=== PATIENT | female | born 1960 | race Caucasian/White ===

== ENCOUNTER 2024-08-30 14:21 | Observation (INO) | payer OTHER ==
[2024-08-30] MEDS ORDERED: NALOXONE 0.4 MG/ML 1 ML VIAL IV PRN (14:56)
--- NOTE | 2024-08-30 14:58 | ED ---
General Adult HPI - General Chief complaint: GI Bleed Stated complaint: GI bleed Time Seen by Provider: 08/30/24 14:26 Source: patient, EMS Mode of arrival: EMS Limitations: no limitations - History of Present Illness Initial comments: Patient is a previously well 64-year-old female history CABG 17 years ago, prior GI bleed presenting today as a transfer from [facility] for concerns for lower GI bleed. Not on blood thinners. Flulike symptoms on Wednesday of nausea, vomiting, low-grade fever 100.1. Seen at [facility] today for tarry and bloody stool since Wednesday evening. Patient estimates 16 episodes in the last 24 hours. Endorses upper back and generalized abdominal pain. No history of alcoholism. States she had a scope with Dr. Healy about 3 years ago and was told that "she had a spot" that would need to be taken care of in the future. At [facility] CT abdomen pelvis without contras was performed, hemoglobin is 11.7, lactic 1.1. She was given 40 mg Protonix, IV fluids, Dr. Healy was contacted and recommended transfer here. Currently endorses lightheadedness, denies TORI or chest pain. - Related Data Home Medications Medication Instructions Recorded Confirmed Atorvastatin [Lipitor] 20 mg PO Q48H 08/30/24 08/30/24 Cyanocobalamin [Vitamin B-12 1,000 mcg SQ QMONTHLY 08/30/24 08/30/24 Injection] Multivitamins, Thera [Multivitamin 1 tab PO DAILY 08/30/24 08/30/24 (formulary)] Nitroglycerin Sl Tabs [Nitrostat] 0.4 mg SUBLINGUAL Q5M PRN 08/30/24 08/30/24 lisinopriL [Zestril] 20 mg PO DAILY 08/30/24 08/30/24 Previous Rx's Medication Instructions Recorded Ferrous Sulfate [Iron (65 MG 325 mg PO BID-W/MEALS #30 tab 09/04/24 Elemental)] Pantoprazole [Protonix] 40 mg PO AC-BID #60 tab 09/04/24 cefuroxime axetiL [Ceftin] 500 mg PO BID 5 Days #10 tab 09/04/24 metroNIDAZOLE [Flagyl] 500 mg PO BID 5 Days #10 tab 09/04/24 Allergies Allergy/AdvReac Type Severity Reaction Status Date / Time No Known Allergies Allergy Verified 08/30/24 15:52 Review of Systems ROS Statement: Those systems with pertinent positive or pertinent negative responses have been documented in the HPI. ROS Other: All systems not noted in ROS Statement are negative. Past Medical History Past Medical History: Coronary Artery Disease (CAD), GI Bleed, Hypertension History of Any Multi-Drug Resistant Organisms: None Reported Past Surgical History: Bariatric Surgery, Heart Catheterization With Stent, Orthopedic Surgery Past Psychological History: No Psychological Hx Reported Smoking Status: Never smoker Past Alcohol Use History: Rare Past Drug Use History: None Reported General Exam - General Exam Comments Initial Comments: PE: CONSTITUTIONAL: No apparent distress, well appearing, generalized pallor SKIN: Warm, dry, no jaundice, hives or petechiae EYES: Pupils are equally round, extraocular movements intact without nystagmus, pale conjunctiva, non-icteric sclera HENT: Normocephalic, atraumatic, moist mucus membranes, oropharynx clear without exudates NECK: , Full range of motion, normal appearance PULMONARY: Clear to auscultation without wheezes, rhonchi, or rales, normal excursion, no accessory muscle use and no stridor CARDIOVASCULAR: Regular rate, rhythm, normal S1 and S2. No appreciated murmurs, rubs or gallops. Strong radial pulses with intact distal perfusion. No lower extremity edema, 2+ pulses in all 4 extremities GASTROINTESTINAL: Soft, active bowel sounds throughout, generalized tenderness to palpation with guarding l non-distended, no palpable masses, no rebound No hepatosplenomegaly GENITOURINARY: MUSCULOSKELETAL: Extremities have no gross deformity, no edema, redness, or swelling. No calf swelling NEUROLOGIC:_a/o x 3, GCS 15, normal mentation and speech. Moves all extremities x 4 without motor or sensory deficit PSYCHIATRIC:_normal mood and affect, thought process is clear and linear Limitations: no limitations Course Vital Signs 08/30/24 08/30/24 08/30/24 14:23 19:20 23:37 Temperature 98.5 F Pulse Rate 71 86 70 Respiratory 18 18 18 Rate Blood Pressure 127/75 137/80 105/51 O2 Sat by Pulse 100 97 96 Oximetry 08/31/24 08/31/24 08/31/24 01:48 05:10 15:00 Temperature 98.0 F 98.5 F 98.2 F Pulse Rate 76 68 72 Respiratory 16 15 16 Rate Blood Pressure 138/84 118/67 124/71 O2 Sat by Pulse 98 100 99 Oximetry EKG Findings - EKG Comments: EKG Findings:: Sinus rhythm rate 68 bpm DC interval 135 ms QT/QTc 399/3 4 performed 70 ms normal axis no ST elevations or depressions, no arrhythmia Medical Decision Making - Medical Decision Making Was pt. sent in by a medical professional or institution (, PA, BUILDING CLEANING SUPERVISOR, urgent care, hospital, or detention...) When possible be specific Patient was transferred from [facility] Did you speak to anyone other than the patient for history (EMS, parent, family, police, friend...)? What history was obtained from this source @ -No Did you review nursing and triage notes (agree or disagree)? Why? @ -I reviewed nursing and triage notes Were old charts reviewed (outside hosp., previous admission, EMS record, old EKG, old radiological studies, urgent care reports/EKG's, detention records)? Report findings @ -Medical records reviewed-reviewed records sent with patient from transferring facility, CT abdomen pelvis without contrast performed, labs were significant for hemoglobin of 11.7 and a lactic of 1.1 Differential Diagnosis (chest pain, altered mental status, abdominal pain women, abdominal pain men, vaginal bleeding, weakness, fever, dyspnea, syncope, headache, dizziness, GI bleed, back pain, seizure, CVA, palpatations, mental health, musculoskeletal)? @ -Differential GI Bleed: Esophageal varices, aortoenteric fistula, Helen-Sousa, gastritis, peptic ulcer disease, diverticulosis, inflammatory bowel disease, hemorrhoids, fissure, colitis, malignancy, Meckel's diverticulum, this is not meant to be an all-inclu sive list. EKG interpreted by me (3pts min.). @ -As above X-rays interpreted by me (1pt min.). @ -None done CT interpreted by me (1pt min.). @ -None done U/S interpreted by me (1pt. min.). @ -None done What testing was considered but not performed or refused? (CT, X-rays, U/S, labs)? Why? @ -None What meds were considered but not given or refused? Why? @ -None Did you discuss the management of the patient with other professionals (professionals i.e. DrSarah, PA, BUILDING CLEANING SUPERVISOR, lab, RT, psych nurse, family welfare social work professor, digital content specialist, teacher, deportation officer, manager case management)? Give summary @ -No Was smoking cessation discussed for >3mins.? @ -No Was critical care preformed (if so, how long)? @ -No Were there social determinants of health that impacted care today? How? (Homelessness, low income, unemployed, alcoholism, drug addiction, transportation, low edu. Level, literacy, decrease access to med. care, fci, rehab)? @ -No Was there de-escalation of care discussed even if they declined (Discuss DNR or withdrawal of care, Hospice)? @ -No What co-morbidities impacted this encounter? (DM, HTN, Smoking, COPD, CAD, C ancer, CVA, ARF, Chemo, Hep., AIDS, mental health diagnosis, sleep apnea, morbid obesity)? @CKD, hypertension Was patient admitted / discharged? Hospital course, mention meds given and route, prescriptions, significant lab abnormalities, going to OR and other pertinent info. @ -Admission patient is a pleasant 64-year-old female history of prior CABG, hypertension presenting today for concerns for lower GI bleed. Vital signs stable on arrival. Patient seen and assessed on arrival, she is resting comfortably no acute distress with pale conjunctiva and generalized pallor, 2+ pulses in all 4 extremities. Discussed with patient plan for admission, will repeat basic labs to ensure no sudden decrease in hemoglobin, page Dr. Huston. Dr. Healy was contacted regarding patient's arrival to the ER. Case was discussed with Dr. Wallis who kindly accepted patient for admission. Undiagnosed new problem with uncertain prognosis? @ -No Drug Therapy requiring intensive monitoring for toxicity (Heparin, Nitro, Insulin, Cardizem)? @ -No Were any procedures done? @ -No Diagnosis/symptom? @ -Lower GI bleed Acute, or Chronic, or Acute on Chronic? @Acute Uncomplicated (without systemic symptoms) or Complicated (systemic symptoms)? Complicated Side effects of treatment? @ -No Exacerbation, Progression, or Severe Exacerbation? @ -No Poses a threat to life or bodily function? How? (Chest pain, USA, PA, pneumonia, PE, COPD, DKA, ARF, appy, cholecystitis, CVA, Diverticulitis, Homicidal, Suicidal, threat to staff... and all critical care pts) Yes, if left untreated could potentially deteriorate into massive GI bleed and hemorrhagic shock - Lab Data Result diagrams: 09/03/24 06:16 09/03/24 06:16 Disposition Clinical Impression: Lower GI bleed Disposition: ADMITTED IP TO THIS HOSP Condition: Fair
[2024-08-30] MEDS: SODIUM CHLORIDE 0.9% 1,000 ML IV STA (15:43)
[2024-08-30] MEDS: ONDANSETRON 4 MG/2 ML VIAL IVP STA ×2 (15:45→19:15)
[2024-08-30] MEDS: MORPHINE SULFATE 4 MG/ML SYRINGE IVP STA (15:46)
[2024-08-30 15:49] LABS: Basophils % (A) 0 %; Eosinophils # (A) 0.2 k/uL (0-0.7); Eosinophils % (A) 3 %; HCT 37.4 % (34.0-46.0); HGB 11.4 gm/dL (11.4-16.0); Lymphocytes # (A) 1.4 k/uL (1.0-4.8); Lymphocytes % (A) 22 %; MCH 27.9 pg (25.0-35.0); MCHC 30.5 g/dL (31.0-37.0); MCV 91.7 fL (80.0-100.0); Mean Platelet Volume 8.4; Monocytes # (A) 0.3 k/uL (0-1.0); Monocytes % (A) 5 %; Neutrophils # (A) 4.3 k/uL (1.3-7.7); Neutrophils % (A) 67 %; Platelet Count 257 k/uL (150-450); RBC 4.08 m/uL (3.80-5.40); RDW 14.4 % (11.5-15.5); WBC 6.3 k/uL (3.8-10.6)
[2024-08-30 16:01] LABS: ALT 19 U/L (4-34); AST 23 U/L (14-36); African American GFR (CKD) >90 (>60 ml/min/1.73 sqM); Albumin 3.8 g/dL (3.5-5.0); Alkaline Phosphatase 75 U/L (38-126); Anion Gap 3 mmol/L; Blood Urea Nitrogen 10 mg/dL (7-17); Calcium 9.2 mg/dL (8.4-10.2); Carbon Dioxide 31 mmol/L (22-30); Chloride 106 mmol/L (98-107); Glucose 91 mg/dL (74-99); Lipase 59 U/L (23-300); Non-African American GFR(CKD) >90 (>60 ml/min/1.73 sqM); Potassium 4.3 mmol/L (3.5-5.1); Sodium 140 mmol/L (137-145); Total Bilirubin 0.5 mg/dL (0.2-1.3); Total Protein 6.2 g/dL (6.3-8.2)
[2024-08-30 16:05] LABS: Prothrombin Time 10.9 sec (10.0-12.5)
[2024-08-30 16:11] LABS: Partial Thromboplastin Time 21.1 sec (22.0-30.0)
--- NOTE | 2024-08-30 18:26 | P.HPIM ---
History of Present Illness This is a pleasant 64 years old female who was transferred from [facility]. Patient presents because of possible lower GI bleed. Patient she states over the last 2 months she has been having pain in both upper and lower abdomen about 6-7/10 in severity radiating to the back [place] like something pressing and is relieved by Zofran which helped her nausea as well. She reports she is having diarrhea with blood more than 16 in the last 24 hours. Also she has pain in her right hip surgery area about 1 year ago had surgery on her right knee had surgery 10 years ago. Also patient reports running fever about 100.1 200.2 few days ago. She has history of bariatric bypass procedure with Dr. Huston. At home she uses only Tylenol for pain no NSAIDs, she is not taking any blood thinner only lisinopril 20 mg twice a day, Lipitor every other days and nitroglycerin pills. She does not have a drug allergy. She denies smoking alcohol or illicit drugs Hemodynamically stable and currently afebrile Hemoglobin 11.4, rest of CBC, BMP, LFT, INR and troponin were all unremarkable EKG showing sinus rhythm at 68 She is given some IV fluid in the emergency room. Placed on IV Protonix and admitted with GI consult At [facility] CT of the abdomen pelvis without contrast showing no acute process identified that would explain the patient Symptoms, gastric bypass surgical changes and other nonspecific findings per report Review of Systems Review of systems CONSTITUTIONAL: No fever, no malaise, no fatigue. HEENT: No recent visual problems or hearing problems. Denied any sore throat. CARDIOVASCULAR: No orthopnea, PND, no palpitations, no syncope. PULMONARY: No shortness of breath, no cough, no hemoptysis. GASTROINTESTINAL: No diarrhea, no nausea, no vomiting, no abdominal pain. Norm oactive bowel sounds. NEUROLOGICAL: No headaches, no weakness, no numbness. HEMATOLOGICAL: Denies any bleeding or petechiae. GENITOURINARY: Denies any burning micturition, frequency, or urgency. MUSCULOSKELETAL/RHEUMATOLOGICAL: Denies any joint pain, swelling, or any muscle pain. ENDOCRINE: Denies any polyuria or polydipsia. Past Medical History Past Medical History: Coronary Artery Disease (CAD), GI Bleed, Hypertension History of Any Multi-Drug Resistant Organisms: None Reported Past Surgical History: Bariatric Surgery, Heart Catheterization With Stent, Orthopedic Surgery Past Psychological History: No Psychological Hx Reported Smoking Status: Never smoker Past Alcohol Use History: Rare Past Drug Use History: None Reported Medications and Allergies Home Medications Medication Instructions Recorded Confirmed Type Atorvastatin [Lipitor] 20 mg PO Q48H 08/30/24 08/30/24 History Cyanocobalamin [Vitamin B-12 1,000 mcg SQ QMONTHLY 08/30/24 08/30/24 History Injection] Multivitamins, Thera [Multivitamin 1 tab PO DAILY 08/30/24 08/30/24 History (formulary)] Nitroglycerin Sl Tabs [Nitrostat] 0.4 mg SUBLINGUAL Q5M PRN 08/30/24 08/30/24 History lisinopriL [Zestril] 20 mg PO DAILY 08/30/24 08/30/24 History Allergies Allergy/AdvReac Type Severity Reaction Status Date / Time No Known Allergies Allergy Verified 08/30/24 15:52 Physical Exam Vitals: Vital Signs Temp Pulse Resp BP Pulse Ox 08/30/24 14:23 98.5 F 71 18 127/75 100 Intake and Output 08/30/24 08/30/24 08/30/24 06:59 14:59 22:59 Other: Weight 84.822 kg GENERAL: The patient is alert and oriented x3, not in any acute distress. Well developed, well nourished. HEENT: Pupils are round and equally reacting to light. EOMI. No scleral icterus. No conjunctival pallor. Normocephalic, atraumatic. No pharyngeal erythema. No thyromegaly. CARDIOVASCULAR: S1 and S2 present. No murmurs, rubs, or gallops. PULMONARY: Chest is clear to auscultation, no wheezing , no crackles. ABDOMEN: Soft, nontender, nondistended, normoactive bowel sounds. No palpable organomegaly. MUSCULOSKELETAL: No joint swelling or deformity. EXTREMITIES: No cyanosis, clubbing, or pedal edema. NEUROLOGICAL: Gross neurological examination did not reveal any focal deficits. SKIN: No rashes. no petechiae. Results CBC & Chem 7: 08/30/24 15:35 08/30/24 15:35 Labs: Abnormal Lab Results - Last 24 Hours (Table) 08/30/24 08/30/24 08/30/24 Range/Units 15:35 15:35 15:35 MCHC 30.5 L (31.0-37.0) g/dL APTT 21.1 L (22.0-30.0) sec Carbon Dioxide 31 H (22-30) mmol/L Creatinine 0.51 L (0.52-1.04) mg/dL Total Protein 6.2 L (6.3-8.2) g/dL Assessment and Plan Assessment: Acute lower GI bleed. Associated with some abdominal cramps and diarrhea suspicious for gastroenteritis. Currently hemoglobin is stable and patient with no fever or leukocytosis Hypertension Hyperlipidemia Plan: Monitor hemoglobin Continue with IV Protonix Avoid NSAIDs and blood thinners if possible Check virus spent GI team consult Further recommendation based on the clinical course GI prophylaxis: Protonix DVT prophylaxis mechanical, no anticoagulation because of the GI bleed Prognosis is guarded
[2024-08-30] MEDS: HYDROmorphone 0.5 MG/0.5 ML SYRINGE IVP PRN (19:15)
[2024-08-30 20:07] LABS: Influenza A Not Detected (Not Detectd); Influenza B Not Detected (Not Detectd); RSV Not Detected (Not Detectd)
[2024-08-31] MEDS: ONDANSETRON 4 MG/2 ML VIAL IVP PRN (05:11)
[2024-08-31] MEDS: lisinopriL 20 MG TAB PO SCH (08:34)
[2024-08-31] MEDS: PANTOPRAZOLE 40 MG/10 ML VIAL IV SCH ×2 (08:34→20:31)
--- NOTE | 2024-08-31 10:30 | P.CONS ---
History of Present Illness - Reason for Consult Consult date: 08/31/24 GI bleed Requesting physician: Elidia Elizabeth - Chief Complaint Nausea and vomiting, coffee-ground emesis and melena - History of Present Illness This is a pleasant 64-year-old female with a past medical history including previous upper GI bleed, gastric bypass with Melina-en-Y 17 years ago, coronary artery disease with previous stent and hypertension. Patient had presented to [facility] with complaints of nausea vomiting and diarrhea since this past Wednesday. She has had multiple episodes of emesis as well as diarrhea which she reported emesis as coffee-ground in color and loose stools that have been black and tarry with some noted blood. She states she does have a history of a previous upper GI bleed she believes possibly an ulcer and had undergone EGD about [address] Healy with intervention. Patient states since she has been transferred here to our hospital she has had no further vomiting, still has some nausea, no further bowel movements. She denies being on any anticoagulation, no NSAID use. Admitting labs WBC 6.3 hemoglobin 11.4 hematocrit 37 platelet count 257,000 INR 1.0 sodium 140 potassium 4.3 BUN 10 creatinine 0.5 total bilirubin 0.5 AST 23 ALT 19 alkaline phosphatase 75 lipase 59 influenza RSV and COVID serologies negative. Patient denies any other sick contacts. Review of Systems REVIEW OF SYSTEMS: CARDIOPULMONARY: No chest pain or shortness of breath. Gastrointestinal: Abdominal pain. Nausea and vomiting since Wednesday, vomiting has resolved. Coffee-ground emesis. Black tarry stool, melena. History of Melina-en-Y and previous GI bleed GENITOURINARY: No dysuria or hematuria. MUSCULOSKELETAL: Reports normal range of motion. SKIN: No rashes. No jaundice. ENDOCRINE: No chills, fevers. No excessive weight gain or loss. No polydipsia or polyuria. PSYCHIATRIC: Unremarkable. NEUROLOGY: No change in mental status. Denies dizziness, headache. ENT: Vision unremarkable. CONSTITUTIONAL: No recent weight loss. No fever, chills, night sweats. Past Medical History Past Medical History: Coronary Artery Disease (CAD), GI Bleed, Hypertension History of Any Multi-Drug Resistant Organisms: None Reported Past Surgical History: Bariatric Surgery, Heart Catheterization With Stent, Orthopedic Surgery Past Psychological History: No Psychological Hx Reported Smoking Status: Never smoker Past Alcohol Use History: Rare Past Drug Use History: None Reported Medications and Allergies Home Medications Medication Instructions Recorded Confirmed Type Atorvastatin [Lipitor] 20 mg PO Q48H 08/30/24 08/30/24 History Cyanocobalamin [Vitamin B-12 1,000 mcg SQ QMONTHLY 08/30/24 08/30/24 History Injection] Multivitamins, Thera [Multivitamin 1 tab PO DAILY 08/30/24 08/30/24 History (formulary)] Nitroglycerin Sl Tabs [Nitrostat] 0.4 mg SUBLINGUAL Q5M PRN 08/30/24 08/30/24 History lisinopriL [Zestril] 20 mg PO DAILY 08/30/24 08/30/24 History Allergies Allergy/AdvReac Type Severity Reaction Status Date / Time No Known Allergies Allergy Verified 08/30/24 15:52 Physical Exam Vitals: Vital Signs Temp Pulse Resp BP Pulse Ox 08/31/24 05:10 98.5 F 68 15 118/67 100 08/31/24 01:48 98.0 F 76 16 138/84 98 08/30/24 23:37 70 18 105/51 96 08/30/24 19:20 86 18 137/80 97 08/30/24 14:23 98.5 F 71 18 127/75 100 General appearance: The patient is alert, oriented, appears in no acute distress. HET: Head is normocephalic and atraumatic. Conjunctiva pink. Sclera anicteric. Neck: Supple without lymphadenopathy. Trachea midline. Heart: Regular. Lungs: Equal expansion, normal respiratory effort. Abdomen: Soft, nontender, nondistended. Skin: No rashes. No jaundice. Extremities: Normal skin color and turgor. No pedal edema. Neurological: No focal deficits. Alert and oriented x3. Results CBC & Chem 7: 08/30/24 15:35 08/30/24 15:35 Labs: Abnormal Lab Results - Last 24 Hours (Table) 08/30/24 08/30/24 08/30/24 Range/Units 15:35 15:35 15:35 MCHC 30.5 L (31.0-37.0) g/dL APTT 21.1 L (22.0-30.0) sec Carbon Dioxide 31 H (22-30) mmol/L Creatinine 0.51 L (0.52-1.04) mg/dL Total Protein 6.2 L (6.3-8.2) g/dL Assessment and Plan (1) GI bleed Narrative/Plan: 64-year-old female presenting from outside hospital for nausea vomiting and diarrhea since Wednesday associated with coffee-ground emesis and black tarry stools and reported melena. This send patient with a previous history of upper GI bleed and underwent upper endoscopy about 3 years ago she states she believes possibly an ulcer was found and treated. She is not on any anticoagulation or NSAIDs she has not been taking any proton pump inhibitors. She had onset of abdominal pain and then she would have loose stools and diarrhea. Hemoglobin is stable at 11.4. Need to consider possible etiology peptic ulcer disease, AVM, gastritis, esophagitis or other possible etiologies. Last colonoscopy about 5 years ago. Will proceed with upper endoscopy. Current Visit: Yes Status: Acute Code(s): K92.2 - GASTROINTESTINAL HEMORRHAGE, UNSPECIFIED SNOMED Code(s): 56959514 (2) Nausea and vomiting Current Visit: Yes Status: Acute Code(s): R11.2 - NAUSEA WITH VOMITING, UNSPECIFIED SNOMED Code(s): 78099986 (3) Melena Current Visit: Yes Status: Acute Code(s): K92.1 - MELENA SNOMED Code(s): 1986282 (4) Coffee ground emesis Current Visit: Yes Status: Acute Code(s): K92.0 - HEMATEMESIS SNOMED Code(s): 84253227 Plan: 1. Continue symptomatic and supportive care 2. Keep n.p.o. 3. Antiemetics as needed 4. Protonix 40 mg twice daily 5. Avoid NSAIDs 6. Daily CBC, transfuse for hemoglobin less than 7 7. Plan for upper endoscopy today with further recommendations forthcoming Thank you for this consultation, we will continue to follow. Dr. Chance Healy I agree with the dictator's note, documented as a scribe by Hannah Bucahnan.
[2024-08-31] MEDS: HYDROmorphone 1 MG/ML 1 ML SYRINGE IVP PRN (11:05)
[2024-08-31] MEDS: DEXTROSE 5%-0.9% NACL 1,000 ML IV SCH (11:06)
--- NOTE | 2024-08-31 11:08 | P.PN ---
Subjective This is a pleasant 64 years old female who was transferred from [facility]. Patient presents because of possible lower GI bleed. Patient she states over the last 2 months she has been having pain in both upper and lower abdomen about 6-7/10 in severity radiating to the back [place] like something pressing and is relieved by Zofran which helped her nausea as well. She reports she is having diarrhea with blood more than 16 in the last 24 hours. Also she has pain in her right hip surgery area about 1 year ago had surgery on her right knee had surgery 10 years ago. Also patient reports running fever about 100.1 200.2 few days ago. She has history of bariatric bypass procedure with Dr. Huston. At home she uses only Tylenol for pain no NSAIDs, she is not taking any blood thinner only lisinopril 20 mg twice a day, Lipitor every other days and nitroglycerin pills. She does not have a drug allergy. She denies smoking alcohol or illicit drugs Hemodynamically stable and currently afebrile Hemoglobin 11.4, rest of CBC, BMP, LFT, INR and troponin were all unremarkable EKG showing sinus rhythm at 68 She is given some IV fluid in the emergency room. Placed on IV Protonix and admitted with GI consult At [facility] CT of the abdomen pelvis without contrast showing no acute process identified that would explain the patient Symptoms, gastric bypass surgical changes and other nonspecific findings per report 08/31 Patient still complaining from right upper quadrant abdominal pain and tenderness She still has nausea uncontrolled completely by Zofran 6 mg every 6 hours, therefore we added Reglan 5 mg as needed as well. She is started on IV fluid D5 normal saline at 75 mL/h. Protonix increased to 40 mg twice daily She is hemodynamically stable. Monitor hemoglobin and electrolytes tomorrow. Plan for the patient to go to EGD today with GI team Review of systems CONSTITUTIONAL: No fever, no malaise, no fatigue. HEENT: No recent visual problems or hearing problems. Denied any sore throat. CARDIOVASCULAR: No orthopnea, PND, no palpitations, no syncope. PULMONARY: No shortness of breath, no cough, no hemoptysis. HEMATOLOGICAL: Denies any bleeding or petechiae. GENITOURINARY: Denies any burning micturition, frequency, or urgency. MUSCULOSKELETAL/RHEUMATOLOGICAL: Denies any joint pain, swelling, or any muscle pain. ENDOCRINE: Denies any polyuria or polydipsia. Active Medications Generic Name Dose Route Start Last Admin Trade Name Freq PRN Reason Stop Dose Admin Hydromorphone HCl 0.5 mg 08/30/24 14:56 08/31/24 05:14 Hydromorphone 0.5 Mg/0.5 Ml Syringe IVP 0.5 mg Q3HR PRN Administration Moderate Pain (Scale 4 to 6) Hydromorphone HCl 1 mg 08/30/24 14:56 08/31/24 11:05 Hydromorphone 1 Mg/Ml 1 Ml Syringe IVP 1 mg Q3HR PRN Administration Severe Pain (Scale 7 to 10) Dextrose/Sodium Chloride 1,000 mls @ 75 mls/hr 08/31/24 11:00 08/31/24 11:06 Dextrose 5%-Ns Iv Soln IV 75 mls/hr .[id number] CRAIG Administration Lisinopril 20 mg 08/31/24 09:00 08/31/24 08:34 Lisinopril 20 Mg Tab PO 20 mg DAILY CRAIG Administration Metoclopramide HCl 5 mg 08/31/24 11:04 Metoclopramide 5 Mg/Ml 2 Ml Vial IVP Q6HR PRN Nausea And Vomiting Naloxone HCl 0.2 mg 08/30/24 14:56 Naloxone 0.4 Mg/Ml 1 Ml Vial IV Q2M PRN Opioid Reversal Ondansetron HCl 4 mg 08/30/24 19:09 08/31/24 10:59 Ondansetron 4 Mg/2 Ml Vial IVP 4 mg Q6HR PRN Administration Nausea And Vomiting Pantoprazole Sodium 40 mg 08/31/24 21:00 Pantoprazole 40 Mg/10 Ml Vial IV BID [facility] Objective - Vital Signs Vital signs: Vital Signs Temp 98.5 F 08/31/24 05:10 Pulse 68 08/31/24 05:10 Resp 15 08/31/24 05:10 BP 118/67 08/31/24 05:10 Pulse Ox 100 08/31/24 05:10 FiO2 Intake & Output 08/30/24 08/31/24 08/31/24 18:59 06:59 18:59 Weight 84.822 kg - Exam -GENERAL: The patient is alert and oriented x3, not in an mild distress due to pain. Well developed, well nourished. HEENT: Pupils are round and equally reacting to light. EOMI. No scleral icterus. No conjunctival pallor. Normocephalic, atraumatic. No pharyngeal erythema. No thyromegaly. CARDIOVASCULAR: S1 and S2 present. No murmurs, rubs, or gallops. PULMONARY: Chest is clear to auscultation, no wheezing , no crackles. -ABDOMEN: Soft, nontender left upper quadrant tenderness with no rebound tenderness or guarding, nondistended, normoactive bowel sounds. No palpable organomegaly. MUSCULOSKELETAL: No joint swelling or deformity. EXTREMITIES: No cyanosis, clubbing, or pedal edema. NEUROLOGICAL: Gross neurological examination did not reveal any focal deficits. SKIN: No rashes. no petechiae. - Labs CBC & Chem 7: 08/30/24 15:35 08/30/24 15:35 Labs: Abnormal Lab Results - Last 24 Hours (Table) 08/30/24 08/30/24 08/30/24 Range/Units 15:35 15:35 15:35 MCHC 30.5 L (31.0-37.0) g/dL APTT 21.1 L (22.0-30.0) sec Carbon Dioxide 31 H (22-30) mmol/L Creatinine 0.51 L (0.52-1.04) mg/dL Total Protein 6.2 L (6.3-8.2) g/dL Assessment and Plan Assessment: Acute lower GI bleed. Associated with some abdominal cramps and diarrhea suspicious for gastroenteritis. Currently hemoglobin is stable and patient with no fever or leukocytosis Dehydration secondary to above Hypertension Hyperlipidemia Plan: Monitor hemoglobin Continue with IV Protonix Avoid NSAIDs and blood thinners if possible Check virus span was checked was negative GI team consult with plan for EGD on 08/31 Further recommendation based on the clinical course GI prophylaxis: Protonix DVT prophylaxis mechanical, no anticoagulation because of the GI bleed Prognosis is guarded
[2024-08-31 11:11] LABS: % Iron Saturation 7.9 (12.00-45.00); Ferritin 11.6 ng/mL (10.0-291.0)
[2024-08-31] MEDS: METOCLOPRAMIDE 5 MG/ML 2 ML VIAL IVP PRN (15:51)
[2024-08-31] MEDS ORDERED: PROPOFOL 10 MG/ML 20 ML VIAL IV ONE (16:40)
[2024-08-31] MEDS ORDERED: LIDOCAINE 1% INJ 10MG/ML (20 ML MDV) ONE (16:40)
[2024-08-31] MEDS: SODIUM CHLORIDE 0.9% 500 ML 500 ML IV ONE ×2 (16:42→17:01)
--- NOTE | 2024-08-31 16:55 | P.PCN ---
Procedure(s) Performed: BRIEF HISTORY: Patient is a 64-year-old, pleasant, white female transferred from [facility] with coffee-ground emesis and multiple episodes of black tarry stools for the last 3 days duration. Last hemoglobin was 11.5 g/dL. She had similar episode in 2019 and was noted to have an anastomotic ulcer at the site of previous Melina-en-Y gastric bypass surgery. She was treated with Prilosec for several months and she did well. She denies any NSAID use. PROCEDURE PERFORMED: Esophagogastroduodenoscopy. PREOPERATIVE DIAGNOSIS: Acute upper GI bleed. IV sedation per anesthesia. PROCEDURE: After informed consent was obtained, the patient was brought into the endoscopy unit. IV sedation was administered by Anesthesia under continuous monitoring. Initially the Olympus GIF-140 video endoscope was inserted into the mouth. Esophagus intubated without any difficulty. It was gradually advanced into the stomach. The gastric pouch had scattered erosions.. There was evidence of Melina-en-Y gastric bypass surgery noted. 3 cm clean-based anastomotic ulcer identified with no active bleeding. Biopsies were done from this area. The scope was advanced into the afferent and efferent loop appeared normal. Scope at this time was brought into the gastric pouch. The scope was then withdrawn into the esophagus. The GE junction was located at 39 cm from the incisors. The esophagus appeared normal. There were no erosions or ulcerations seen and the patient tolerated the procedure well. IMPRESSION: 1. 3 cm clean-based gastric anastomotic ulcer at the Melina-en-Y anastomosis with no active bleeding. 2. Scattered erosions in the gastric pouch status post biopsy. RECOMMENDATIONS: The findings of this examination were discussed with the patient. Continue with Protonix 40 mg twice daily. Starting for liquid diet and advance as tolerated. Monitor CBC daily. Avoid NSAIDs..
[2024-08-31 23:35] LABS: Basophils % (A) 0 %; Eosinophils # (A) 0.2 k/uL (0-0.7); Eosinophils % (A) 3 %; HCT 31.4 % (34.0-46.0); Hypochromasia Moderate; Lymphocytes # (A) 1.5 k/uL (1.0-4.8); Lymphocytes % (A) 27 %; MCH 29.9 pg (25.0-35.0); MCHC 31.7 g/dL (31.0-37.0); MCV 94.3 fL (80.0-100.0); Mean Platelet Volume 7.9; Monocytes # (A) 0.3 k/uL (0-1.0); Monocytes % (A) 6 %; Neutrophils # (A) 3.2 k/uL (1.3-7.7); Neutrophils % (A) 59 %; Platelet Count 242 k/uL (150-450); RBC 3.33 m/uL (3.80-5.40); RDW 13.9 % (11.5-15.5); WBC 5.3 k/uL (3.8-10.6)
[2024-08-31] MEDS: PIPERACILLIN-TAZOBACTAM 3.375 GM in SODIUM CHLORIDE 0.9% 100 ML IVPB SCH (23:56)
--- NOTE | 2024-09-01 00:39 | XR ---
EXAM: XR Chest, 2 Views CLINICAL HISTORY: ITS.REASON XR Reason: fever TECHNIQUE: Frontal and lateral views of the chest. COMPARISON: No relevant prior studies available. FINDINGS: Lungs: Unremarkable. No consolidation. Pleural space: Unremarkable. No pneumothorax. Heart: Unremarkable. No cardiomegaly. Mediastinum: Unremarkable. Bones/joints: Unremarkable. IMPRESSION: No consolidation.
[2024-09-01 03:23] LABS: Appearance,Urine Clear (Clear); Bacteria,Urine Rare /hpf; Bilirubin,Urine Negative (Negative); Blood,Urine Trace (Negative); Color,Urine Light Yellow; Glucose,Urine (UA) Negative (Negative); Hyaline Casts,Urine 1 /lpf (0-2); Ketones,Urine Negative (Negative); Leukocyte Esterase,Urine Small (Negative); Mucus,Urine Rare /hpf; Nitrite,Urine Negative (Negative); Protein,Urine Negative (Negative); RBC,Urine 1 /hpf (0-5); Renal Epithelial Cells,Urine 1 /hpf (0); Specific Gravity,Urine 1.011 (1.001-1.035); Squamous Epithelial Cell,Urine <1 /hpf (0-4); Urobilinogen,Urine <2.0 mg/dL (<2.0); WBC,Urine 11 /hpf (0-5)
[2024-09-01 08:39] LABS: Basophils # (A) 0.02 X 10*3/uL (0.00-0.10); Basophils % (A) 0.4 %; Eosinophils # (A) 0.17 X 10*3/uL (0.04-0.35); Eosinophils % (A) 3.4 %; HCT 30.9 % (37.2-46.3); HGB 9.5 g/dL (12.0-15.0); Lymphocytes % (A) 26.2 %; MCH 29.1 pg (27.0-32.0); MCHC 30.7 g/dL (32.0-37.0); MCV 94.5 FL (80.0-97.0); Monocytes # (A) 0.52 X 10*3/uL (0.20-1.00); Monocytes % (A) 10.5 %; NRBC Per 100 WBC 0 X 10*3/uL (0.00-0.01); Neutrophils # (A) 2.94 X 10*3/uL (1.80-7.70); Neutrophils % (A) 59.3 %; Platelet Count 233 X 10*3/uL (140-440); RBC 3.27 X 10*6/uL (4.10-5.20); RDW 13.8 % (11.5-14.5); WBC 4.96 X 10*3/uL (4.50-10.00)
[2024-09-01 08:44] LABS: BUN/Creat Ratio 11.43 Ratio (12.00-20.00); Calcium 8.4 mg/dL (8.7-10.3); Carbon Dioxide 28.2 mmol/L (21.6-31.8); Chloride 106 mmol/L (96-109); Glucose 97 mg/dL (70-110); Potassium 4.4 mmol/L (3.5-5.5); Sodium 141 mmol/L (135-145)
--- NOTE | 2024-09-01 10:16 | P.PN ---
Subjective This is a pleasant 64 years old female who was transferred from [facility]. Patient presents because of possible lower GI bleed. Patient she states over the last 2 months she has been having pain in both upper and lower abdomen about 6-7/10 in severity radiating to the back [place] like something pressing and is relieved by Zofran which helped her nausea as well. She reports she is having diarrhea with blood more than 16 in the last 24 hours. Also she has pain in her right hip surgery area about 1 year ago had surgery on her right knee had surgery 10 years ago. Also patient reports running fever about 100.1 200.2 few days ago. She has history of bariatric bypass procedure with Dr. Huston. At home she uses only Tylenol for pain no NSAIDs, she is not taking any blood thinner only lisinopril 20 mg twice a day, Lipitor every other days and nitroglycerin pills. She does not have a drug allergy. She denies smoking alcohol or illicit drugs Hemodynamically stable and currently afebrile Hemoglobin 11.4, rest of CBC, BMP, LFT, INR and troponin were all unremarkable EKG showing sinus rhythm at 68 She is given some IV fluid in the emergency room. Placed on IV Protonix and admitted with GI consult At [facility] CT of the abdomen pelvis without contrast showing no acute process identified that would explain the patient Symptoms, gastric bypass surgical changes and other nonspecific findings per report 08/31 Patient still complaining from right upper quadrant abdominal pain and tenderness She still has nausea uncontrolled completely by Zofran 6 mg every 6 hours, therefore we added Reglan 5 mg as needed as well. She is started on IV fluid D5 normal saline at 75 mL/h. Protonix increased to 40 mg twice daily She is hemodynamically stable. Monitor hemoglobin and electrolytes tomorrow. Plan for the patient to go to EGD today with GI team 09/01 Patient had EGD yesterday showing 3 cm clean-based gastric ulcers with no active bleeding. GI team recommended to continue with Protonix IV twice daily and follow-up closely outpatient for reevaluation for possible repeat EGD, discussed this recommendation with the patient and she verbalized understanding acceptance. Also patient has not developed a low-grade fever about 100.4. Also patient was reporting she had fever at home before the hospitalization therefore we did more workup with chest x-ray showing no consolidation. Urinalysis slightly abnormal with WBC only 11 and she has a small leukocyte esterase. Blood culture and urine culture and procalcitonin ordered pending Patient was started empirically on IV Zosyn and we are going to consult infectious disease team. Noted that patient is fully awake oriented looks comfortable today with nausea controlled. She did not have bowel movement since yesterday but she is passing gas. Patient complains from right upper quadrant pain and tenderness which could be related to her gastric ultrasound but also she has some abdominal cramps in the lower abdomen below the umbilicus. Review of systems CONSTITUTIONAL: No fever, no malaise, no fatigue. HEENT: No recent visual problems or hearing problems. Denied any sore throat. CARDIOVASCULAR: No orthopnea, PND, no palpitations, no syncope. PULMONARY: No shortness of breath, no cough, no hemoptysis. HEMATOLOGICAL: Denies any bleeding or petechiae. MUSCULOSKELETAL/RHEUMATOLOGICAL: Denies any joint pain, swelling, or any muscle pain. ENDOCRINE: Denies any polyuria or polydipsia. Active Medications Generic Name Dose Route Start Last Admin Trade Name Freq PRN Reason Stop Dose Admin Hydromorphone HCl 0.5 mg 08/30/24 14:56 09/01/24 09:12 Hydromorphone 0.5 Mg/0.5 Ml Syringe IVP 0.5 mg Q3HR PRN Administration Moderate Pain (Scale 4 to 6) Hydromorphone HCl 1 mg 08/30/24 14:56 08/31/24 11:05 Hydromorphone 1 Mg/Ml 1 Ml Syringe IVP 1 mg Q3HR PRN Administration Severe Pain (Scale 7 to 10) Dextrose/Sodium Chloride 1,000 mls @ 75 mls/hr 08/31/24 11:00 08/31/24 20:33 Dextrose 5%-Ns Iv Soln IV 75 mls/hr .[id number] CRAIG Administration Piperacillin Sod/Tazobactam 100 mls @ 25 mls/hr 09/01/24 00:00 09/01/24 09:09 Sod 3.375 gm/ Sodium Chloride IVPB 25 mls/hr Q8HR CRAIG Administration Protocol Lisinopril 20 mg 08/31/24 09:00 09/01/24 09:09 Lisinopril 20 Mg Tab PO 20 mg DAILY CRAIG Administration Metoclopramide HCl 5 mg 08/31/24 11:04 08/31/24 15:51 Metoclopramide 5 Mg/Ml 2 Ml Vial IVP 5 mg Q6HR PRN Administration Nausea And Vomiting Naloxone HCl 0.2 mg 08/30/24 14:56 Naloxone 0.4 Mg/Ml 1 Ml Vial IV Q2M PRN Opioid Reversal Ondansetron HCl 4 mg 08/30/24 19:09 09/01/24 09:12 Ondansetron 4 Mg/2 Ml Vial IVP 4 mg Q6HR PRN Administration Nausea And Vomiting Pantoprazole Sodium 40 mg 08/31/24 21:00 09/01/24 09:09 Pantoprazole 40 Mg/10 Ml Vial IV 40 mg BID CRAIG Administration Objective - Vital Signs Vital signs: Vital Signs Temp 99 F 09/01/24 06:47 Pulse 77 09/01/24 06:47 Resp 18 09/01/24 06:47 BP 112/67 09/01/24 06:47 Pulse Ox 92 L 09/01/24 06:47 FiO2 Intake & Output 08/31/24 09/01/24 09/01/24 18:59 06:59 18:59 Intake Total 100 Balance 100 Weight 84.822 kg 88 kg Intake: IV 100 Other: Voiding Method Toilet # Voids 3 - Exam -GENERAL: The patient is alert and oriented x3, not in an mild distress due to pain. Well developed, well nourished. HEENT: Pupils are round and equally reacting to light. EOMI. No scleral icterus. No conjunctival pallor. Normocephalic, atraumatic. No pharyngeal erythema. No thyromegaly. CARDIOVASCULAR: S1 and S2 present. No murmurs, rubs, or gallops. PULMONARY: Chest is clear to auscultation, no wheezing , no crackles. -ABDOMEN: Soft, left upper quadrant tenderness with no rebound tenderness or guarding, nondistended, normoactive bowel sounds. No palpable organomegaly. MUSCULOSKELETAL: No joint swelling or deformity. EXTREMITIES: No cyanosis, clubbing, or pedal edema. NEUROLOGICAL: Gross neurological examination did not reveal any focal deficits. SKIN: No rashes. no petechiae. - Labs CBC & Chem 7: 09/01/24 05:38 09/01/24 05:38 Labs: Abnormal Lab Results - Last 24 Hours (Table) 0208/31/24 09/01/24 Range/Units 06:31 22:43 00:01 RBC 3.33 L (3.80-5.40) m/uL Hgb 10.0 L (11.4-16.0) gm/dL Hct 31.4 L (34.0-46.0) % MCHC (32.0-37.0) g/dL BUN (9.0-27.0) mg/dL BUN/Creatinine Ratio (12.00-20.00) Ratio Calcium (8.7-10.3) mg/dL Iron 23 L (50-170) UG/DL % Saturation 7.90 L (12.00-45.00) Vitamin B12 953.0 H (200.0-944.0) pg/mL Urine Blood Trace H (Negative) Ur Leukocyte Esterase Small H (Negative) Urine WBC 11 H (0-5) /hpf Urine Bacteria Rare H (None) /hpf Urine Mucus Rare H (None) /hpf 09/01/24 09/01/24 Range/Units 05:38 05:38 RBC 3.27 L (3.80-5.40) m/uL Hgb 9.5 L (11.4-16.0) gm/dL Hct 30.9 L (34.0-46.0) % MCHC 30.7 L (32.0-37.0) g/dL BUN 8.0 L (9.0-27.0) mg/dL BUN/Creatinine Ratio 11.43 L (12.00-20.00) Ratio Calcium 8.4 L (8.7-10.3) mg/dL Iron (50-170) UG/DL % Saturation (12.00-45.00) Vitamin B12 (200.0-944.0) pg/mL Urine Blood (Negative) Ur Leukocyte Esterase (Negative) Urine WBC (0-5) /hpf Urine Bacteria (None) /hpf Urine Mucus (None) /hpf Assessment and Plan Assessment: Acute lower GI bleed secondary to gastric ulcer, 3 cm seen on EGD done in 08/31. abdominal cramps and diarrhea suspicious for gastroenteritis. Currently diarrhea stopped. Currently hemoglobin is stable and patient with no fever or leukocytosis Dehydration secondary to above Hypertension Hyperlipidemia Plan: Monitor hemoglobin Continue with IV Protonix twice daily Avoid NSAIDs and blood thinners if possible Check virus span was checked was negative Blood culture and urine culture are pending Start Zosyn empirically Consult infectious disease team EGD on 08/31 was reviewed Further recommendation based on the clinical course GI prophylaxis: Protonix DVT prophylaxis mechanical, no anticoagulation because of the GI bleed Prognosis is guarded Plan was discussed in details with the patient and she verbalized understanding and acceptance
--- NOTE | 2024-09-01 13:08 | P.PN ---
Subjective Progress Note Date: 09/01/24 Principal diagnosis: Melena, GI bleed This is a pleasant 64-year-old female with a past medical history including previous upper GI bleed, gastric bypass with Melina-en-Y 17 years ago, coronary artery disease with previous stent and hypertension. Patient had presented to [facility] with complaints of nausea vomiting and diarrhea since this past Wednesday. She has had multiple episodes of emesis as well as diarrhea which she reported emesis as coffee-ground in color and loose stools that have been black and tarry with some noted blood. She states she does have a history of a previous upper GI bleed she believes possibly an ulcer and had undergone EGD about [address] Healy with intervention. Patient states since she has been transferred here to our hospital she has had no further vomiting, still has some nausea, no further bowel movements. She denies being on any anticoagulation, no NSAID use. Admitting labs WBC 6.3 hemoglobin 11.4 hematocrit 37 platelet count 257,000 INR 1.0 sodium 140 potassium 4.3 BUN 10 creatinine 0.5 total bilirubin 0.5 AST 23 ALT 19 alkaline phosphatase 75 lipase 59 influenza RSV and COVID serologies negative. Patient denies any other sick contacts. 09/01/2024 Patient seen and examined today as a follow-up. Yesterday she underwent upper endoscopy with findings of 3 cm clean-based gastric anastomotic ulcer at the anastomosis with no active bleeding. Scattered erosions in the gastric pouch status post biopsy. Patient denies any abdominal pain, nausea or vomiting. No blood in her stool or black stool. Patient had spiked a low-grade temp yesterday evening and was started on IV antibiotics empirically by medical team. She has been afebrile since. She has had recent upper respiratory and GI symptoms. Objective - Vital Signs Vital signs: Vital Signs Temp 98.9 F 09/01/24 02:06 Pulse 71 09/01/24 02:06 Resp 17 09/01/24 02:06 BP 100/66 09/01/24 02:06 Pulse Ox 93 L 09/01/24 02:06 FiO2 Intake & Output 08/31/24 08/31/24 09/01/24 06:59 18:59 06:59 Intake Total 100 Balance 100 Weight 84.822 kg 88 kg Intake: IV 100 Other: Voiding Method Toilet # Voids 3 - Exam General appearance: The patient is alert, oriented, appears in no acute distress. HET: Head is normocephalic and atraumatic. Conjunctiva pink. Sclera anicteric. Neck: Supple without lymphadenopathy. Abdomen: Soft, nontender, nondistended. Extremities: Normal skin color and turgor. No pedal edema Skin: No rashes, no jaundice Neurological: No focal deficits. Alert and oriented. - Labs CBC & Chem 7: 09/01/24 05:38 09/01/24 05:38 Labs: Abnormal Lab Results - Last 24 Hours (Table) 08/31/24 08/31/24 09/01/24 Range/Units 06:31 22:43 00:01 RBC 3.33 L (3.80-5.40) m/uL Hgb 10.0 L (11.4-16.0) gm/dL Hct 31.4 L (34.0-46.0) % Iron 23 L (50-170) UG/DL % Saturation 7.90 L (12.00-45.00) Vitamin B12 953.0 H (200.0-944.0) pg/mL Urine Blood Trace H (Negative) Ur Leukocyte Esterase Small H (Negative) Urine WBC 11 H (0-5) /hpf Urine Bacteria Rare H (None) /hpf Urine Mucus Rare H (None) /hpf Assessment and Plan (1) GI bleed Narrative/Plan: 64-year-old female presenting from outside hospital for nausea vomiting and diarrhea since Wednesday associated with coffee-ground emesis and black tarry stools and reported melena. This send patient with a previous history of upper GI bleed and underwent upper endoscopy about 3 years ago she states she believes possibly an ulcer was found and treated. She is not on any anticoagulation or NSAIDs she has not been taking any proton pump inhibitors. She had onset of abdominal pain and then she would have loose stools and diarrhea. Hemoglobin is stable at 11.4. Need to consider possible etiology peptic ulcer disease, AVM, gastritis, esophagitis or other possible etiologies. Last colonoscopy about 5 years ago. Patient is post upper endoscopy with finding of 3 cm clean-based ulcer at anastomotic site of Melina-en-Y without any active bleeding and scattered erosions in the gastric pouch status postbiopsy. Melena likely secondary from the ulcer and/or gastric erosions. Iron panel shows iron deficiency anemia likely from acute blood loss anemia. We can replace iron. Continue with Protonix 40 mg tw ice daily. Otherwise patient can be discharged home. Follow-up with Dr. Healy in [place] and will need repeat upper endoscopy in 6 months. Current Visit: Yes Status: Acute Code(s): K92.2 - GASTROINTESTINAL HEMORRHAG E, UNSPECIFIED SNOMED Code(s): 96672440 (2) Nausea and vomiting Current Visit: Yes Status: Acute Code(s): R11.2 - NAUSEA WITH VOMITING, UNSPECIFIED SNOMED Code(s): 01649388 (3) Melena Current Visit: Yes Status: Acute Code(s): K92.1 - MELENA SNOMED Code(s): 7509433 (4) Coffee ground emesis Current Visit: Yes Status: Acute Code(s): K92.0 - HEMATEMESIS SNOMED Code(s): 00166111 Plan: 1. Continue symptomatic and supportive care 2. K advance diet 3. Antiemetics as needed 4. Continue Protonix 40 mg twice daily 5. Avoid NSAIDs 6. Will start iron twice a day 7. Patient is cleared from gastroenterology for discharge. Outpatient follow- up with repeat upper endoscopy in 6 months Thank you for this consultation, we will sign off at this time. Dr. Chance Healy I agree with the dictator's note, documented as a scribe by Hannah Buchanan.
--- NOTE | 2024-09-01 16:01 | P.CONS ---
History of Present Illness - Reason for Consult Consult date: 09/01/24 Fever Requesting physician: Akhil E Sheet - Chief Complaint Nausea vomiting abdominal pain and diarrhea x few days - History of Present Illness Patient is a 64-year-old female with a past medical history significant for coronary artery disease hypertension GI bleed status post bariatric surgery presenting to the hospital 2 days ago as a transfer from [facility] with concern for lower GI bleed patient mention he started having a flulike symptoms on Wednesday as she did have a nausea and vomiting and low-grade fever subsequently the patient did have diarrhea and did have tarry and bloody stool since Wednesday evening patient did have a CT of abdominal pelvis without contrast did not show any acute process patient has been evaluated by GI and the patient is status post EGD with evidence of clean-based gastric anastomotic ulcer s/p biopsy patient was afebrile initially however she did have a low-grade fever 100.4 last evening that has prompted this consultation patient not been tachycardic or hypotensive not hypoxic or need for supplemental oxygen patient did have white count of 6.3 repeat is 4.96 creatinine 0.7 electrolyte has been normal liver enzymes are normal urine is mildly positive influenza RSV COVID testing has been negative chest x-ray no consolidation Review of Systems Positive point and negatives has been mentioned in the HPI, complete review of systems was performed and all other systems are negative Past Medical History Past Medical History: Coronary Artery Disease (CAD), GI Bleed, Hypertension History of Any Multi-Drug Resistant Organisms: None Reported Past Surgical History: Bariatric Surgery, Heart Catheterization With Stent, Orthopedic Surgery Date of Last Stent Placement:: 2018 Past Psychological History: No Psychological Hx Reported Smoking Status: Never smoker Past Alcohol Use History: Rare Past Drug Use History: None Reported Medications and Allergies Home Medications Medication Instructions Recorded Confirmed Type Atorvastatin [Lipitor] 20 mg PO Q48H 08/30/24 08/30/24 History Cyanocobalamin [Vitamin B-12 1,000 mcg SQ QMONTHLY 08/30/24 08/30/24 History Injection] Multivitamins, Thera [Multivitamin 1 tab PO DAILY 08/30/24 08/30/24 History (formulary)] Nitroglycerin Sl Tabs [Nitrostat] 0.4 mg SUBLINGUAL Q5M PRN 08/30/24 08/30/24 History lisinopriL [Zestril] 20 mg PO DAILY 08/30/24 08/30/24 History Allergies Allergy/AdvReac Type Severity Reaction Status Date / Time No Known Allergies Allergy Verified 08/30/24 15:52 Physical Exam Vitals: Vital Signs Temp Pulse Pulse Resp BP BP Pulse Ox 09/01/24 06:47 99 F 77 18 112/67 92 L 09/01/24 02:06 98.9 F 71 17 100/66 93 L 08/31/24 19:38 100.4 F H 79 16 93/60 90 L 08/31/24 17:57 100.2 F H 83 18 133/78 92 L 08/31/24 15:00 98.2 F 72 16 124/71 99 Intake and Output 08/31/24 09/01/24 09/01/24 22:59 06:59 14:59 Intake Total 100 Balance 100 Intake: IV 100 Other: Voiding Method Toilet # Voids 3 Weight 84.822 kg 88 kg GENERAL DESCRIPTION: Middle-age female lying in bed, no distress. No tachypnea or accessory muscle of respiration use. HEENT: Shows Pallor , no scleral icterus. Oral mucous membrane is dry. No pharyngeal erythema or thrush NECK: Trachea central, no thyromegaly. LUNGS: Unlabored breathing. Clear to auscultation anteriorly. No wheeze or crackle. HEART: S1, S2, regular rate and rhythm. No loud murmur ABDOMEN: Soft, no tenderness , EXTREMITIES: No edema of feet. SKIN: No rash, no masses palpable. NEUROLOGICAL: The patient is awake, alert, oriented x3, mood and affect normal. Results CBC & Chem 7: 09/03/24 06:16 09/03/24 06:16 Labs: Abnormal Lab Results - Last 24 Hours (Table) 08/31/24 09/01/24 09/01/24 Range/Units 22:43 00:01 05:38 RBC 3.33 L 3.27 L (3.80-5.40) m/uL Hgb 10.0 L 9.5 L (11.4-16.0) gm/dL Hct 31.4 L 30.9 L (34.0-46.0) % MCHC 30.7 L (32.0-37.0) g/dL BUN (9.0-27.0) mg/dL BUN/Creatinine Ratio (12.00-20.00) Ratio Calcium (8.7-10.3) mg/dL Urine Blood Trace H (Negative) Ur Leukocyte Esterase Small H (Negative) Urine WBC 11 H (0-5) /hpf Urine Bacteria Rare H (None) /hpf Urine Mucus Rare H (None) /hpf 09/01/24 Range/Units 05:38 RBC (3.80-5.40) m/uL Hgb (11.4-16.0) gm/dL Hct (34.0-46.0) % MCHC (32.0-37.0) g/dL BUN 8.0 L (9.0-27.0) mg/dL BUN/Creatinine Ratio 11.43 L (12.00-20.00) Ratio Calcium 8.4 L (8.7-10.3) mg/dL Urine Blood (Negative) Ur Leukocyte Esterase (Negative) Urine WBC (0-5) /hpf Urine Bacteria (None) /hpf Urine Mucus (None) /hpf Assessment and Plan (1) Fever Current Visit: Yes Status: Acute Code(s): R50.9 - FEVER, UNSPECIFIED SNOMED Code(s): 310778858 (2) Gastroenteritis Current Visit: Yes Status: Acute Code(s): K52.9 - NONINFECTIVE GASTROENTERITIS AND COLITIS, UNSPECIFIED SNOMED Code(s): 23073264 Plan: 1patient with a low-grade fever in this patient who did have predominantly GI symptoms starting with a nausea vomiting diarrhea and did have some blood in the stool apparently did have a CT at the outside facility did not show any acute abnormality and the patient status post EGD with evidence of gastric anastomosis ulcer status post biopsy source of the fever likely abdominal/GI 2we will request for stool culture as well as stool for C. difficile 3empirically covered with Zosyn while waiting for the workup to be completed We will follow on clinical condition and cultures to further adjust medication if needed Thank you for this consultation we will follow the patient along with you Dictation was produced using [employer] dictation software. please excuse any grammatical, word or spelling errors. Time with Patient: Greater than 30
[2024-09-01] MEDS: FERROUS SULFATE 325 MG TAB PO SCH (17:04)
--- NOTE | 2024-09-02 15:36 | P.PN ---
Progress Note - Text Interval History: This is a pleasant 64 years old female who was transferred from [facility]. Patient presents because of possible lower GI bleed. Patient she states over the last 2 months she has been having pain in both upper and lower abdomen about 6-7/10 in severity radiating to the back [place] like something pressing and is relieved by Zofran which helped her nausea as well. She reports she is having diarrhea with blood more than 16 in the last 24 hours. Also she has pain in her right hip surgery area about 1 year ago had surgery on her right knee had surgery 10 years ago. Also patient reports running fever about 100.1 200.2 few days ago. She has history of bariatric bypass procedure with Dr. Huston. At home she uses only Tylenol for pain no NSAIDs, she is not taking any blood thinner only lisinopril 20 mg twice a day, Lipitor every other days and nitroglycerin pills. She does not have a drug allergy. She denies smoking alcohol or illicit drugs Hemodynamically stable and currently afebrile Hemoglobin 11.4, rest of CBC, BMP, LFT, INR and troponin were all unremarkable EKG showing sinus rhythm at 68 She is given some IV fluid in the emergency room. Placed on IV Protonix and admitted with GI consult At [facility] CT of the abdomen pelvis without contrast showing no acute process identified that would explain the patient Symptoms, gastric bypass surgical changes and other nonspecific findings per report 08/31 Patient still complaining from right upper quadrant abdominal pain and tenderness She still has nausea uncontrolled completely by Zofran 6 mg every 6 hours, therefore we added Reglan 5 mg as needed as well. She is started on IV fluid D5 normal saline at 75 mL/h. Protonix increased to 40 mg twice daily She is hemodynamically stable. Monitor hemoglobin and electrolytes tomorrow. Plan for the patient to go to EGD today with GI team 09/01 Patient had EGD yesterday showing 3 cm clean-based gastric ulcers with no active bleeding. GI team recommended to continue with Protonix IV twice daily and follow-up closely outpatient for reevaluation for possible repeat EGD, discussed this recommendation with the patient and she verbalized understanding acceptance. Also patient has not developed a low-grade fever about 100.4. Also patient was reporting she had fever at home before the hospitalization therefore we did more workup with chest x-ray showing no consolidation. Urinalysis slightly abnormal with WBC only 11 and she has a small leukocyte esterase. Blood culture and urine culture and procalcitonin ordered pending Patient was started empirically on IV Zosyn and we are going to consult infectious disease team. Noted that patient is fully awake oriented looks comfortable today with nausea controlled. She did not have bowel movement since yesterday but she is passing gas. Patient complains from right upper quadrant pain and tenderness which could be related to her gastric ultrasound but also she has some abdominal cramps in the lower abdomen below the umbilicus. 09/02--patient was seen and examined today. No further episodes of diarrhea or melena. Complaining of left wrist pain, x-ray left wrist and ultrasound left upper extremity to rule out DVT ordered. Currently on Zosyn. Infectious disease following. Assessment and plan: Upper GI bleed: Gastric ulcer: History of gastric bypass surgery: Presented with black tarry stools Status post EGD showing 3 cm clean-based ulcer at anastomotic site of gastric bypass, no active bleeding. GI recommended to continue Protonix Monitor hemoglobin Fever: Gastroenteritis: Patient spiked fever during hospitalization Stool culture and C. difficile ordered Continue Zosyn Infectious disease consult X-ray left wrist and ultrasound left upper extremity to rule out DVT ordered. DVT prophylaxis: SCD Monitor vital signs and labs Labs and medication were reviewed. Continue same treatment. Further recommendations as per clinical course of the patient PHYSICAL EXAMINATION: GENERAL: The patient is A&O x3, NAD HEENT: EOMI, Sclerae anicteric, Moist Mucous membranes Neck: Supple, Non tender, No JVD PULMONARY: Equal breath souds B/L, No wheezing, No crackles. CARDIOVASCULAR: S1, S2 present. No murmurs, rubs, or gallops. ABDOMEN: Soft, nontender, nondistended, normoactive bowel sounds. No guarding or rebound tenderness. MUSCULOSKELETAL: No edema, No cyanosis. No clubbing. Normal ROM. Intact peripheral pulses. NEUROLOGICAL: CN 2-12 grossly intact. No FND Skin: No Rash REVIEW OF SYSTEMS: CONSTITUTIONAL: No fever or chills. CARDIOVASCULAR: No chest pain, palpitations or syncope. PULMONARY: No shortness of breath, no cough, sore throat. GASTROINTESTINAL: No nausea, vomiting, diarrhea, abdominal pain. : No Dysuria, urgency, frequency. Extremities: No edema. NEUROLOGICAL: No headaches, no weakness, or numbness Dictation was produced using [employer] software. please excuse any grammatical, word or spelling errors.
--- NOTE | 2024-09-02 15:55 | XR ---
EXAMINATION TYPE: XR hand complete LT DATE OF EXAM: 09/02/2024 3:27 PM COMPARISON: None available. CLINICAL INDICATION: Female, 64 years old with history of Left wrist pain; PHH, pain TECHNIQUE: XR hand complete LT Frontal, lateral and oblique views were obtained. FINDINGS: Normal alignment of the visualized joints. No acute osseous pathology is identified. No si gnificant soft tissue swelling. Osseous structures are demineralized. Moderate degenerative osteoarth ritis of the first carpal metacarpal joint. IMPRESSION: 1. No acute osseous pathology. 2. Multifocal osteoarthrosis throughout the joints of the hand. [facility], , 09/02/2024 3:52 PM
--- NOTE | 2024-09-02 16:08 | US ---
EXAMINATION TYPE: US venous doppler duplex UE LT DATE OF EXAM: 09/02/2024 Exam done portable COMPARISON: NONE CLINICAL INDICATION: Female, 64 years old with history of LUE pain; Left hand pain TECHNIQUE: Grayscale, color Doppler and spectral Doppler imaging of the upper extremity. SIDE PERFORMED: Left VESSELS IMAGED: IJV Subclavian Vein Axilla Vein Brachial Vein(s) Radial Paired Veins Ulnar Paired Veins Cephalic Vein* Basilic Vein* (*superficial vessels) FINDINGS: Echogenic nonocclusive thrombus within the superficial veins cephalic vein. Left Arm: Appears negative for DVT Thrombus seen within superficial basilic vein IMPRESSION: 1. No evidence of DVT in the left upper cavity. 2. Occlusive thrombus within the superficial basilic vein. [facility], , 09/02/2024 4:05 PM
[2024-09-02] MEDS: PANTOPRAZOLE 40 MG TABLET PO SCH (17:09)
[2024-09-03 09:46] LABS: HCT 29.8 % (37.2-46.3); HGB 9.2 g/dL (12.0-15.0); MCHC 30.9 g/dL (32.0-37.0); NRBC Per 100 WBC 0 X 10*3/uL (0.00-0.01); Platelet Count 251 X 10*3/uL (140-440); RBC 3.17 X 10*6/uL (4.10-5.20); RDW 13.7 % (11.5-14.5); WBC 6.16 X 10*3/uL (4.50-10.00)
[2024-09-03 09:57] LABS: BUN/Creat Ratio 16.67 Ratio (12.00-20.00); Calcium 8.4 mg/dL (8.7-10.3); Carbon Dioxide 27.6 mmol/L (21.6-31.8); Chloride 107 mmol/L (96-109); Glucose 106 mg/dL (70-110); Potassium 4.5 mmol/L (3.5-5.5); Sodium 142 mmol/L (135-145)
[2024-09-03 10:36] LABS: Basophils # (A) 0.03 X 10*3/uL (0.00-0.10); Basophils % (A) 0.5 %; Eosinophils # (A) 0.27 X 10*3/uL (0.04-0.35); Eosinophils % (A) 4.4 %; Lymphocytes # (A) 1.31 X 10*3/uL (0.90-5.00); Lymphocytes % (A) 21.3 %; Monocytes # (A) 0.68 X 10*3/uL (0.20-1.00); Neutrophils # (A) 3.86 X 10*3/uL (1.80-7.70); Neutrophils % (A) 62.6 %; RBC Morphology Normal (Normal)
--- NOTE | 2024-09-03 13:31 | P.PN ---
Subjective Progress Note Date: 09/03/24 Interval History: This is a pleasant 64 years old female who was transferred from [facility]. Patient presents because of possible lower GI bleed. Patient she states over the last 2 months she has been having pain in both upper and lower abdomen about 6-7/10 in severity radiating to the back [place] like something pressing and is relieved by Zofran which helped her nausea as well. She reports she is having diarrhea with blood more than 16 in the last 24 hours. Also she has pain in her right hip surgery area about 1 year ago had surgery on her right knee had surgery 10 years ago. Also patient reports running fever about 100.1 200.2 few days ago. She has history of bariatric bypass procedure with Dr. Huston. At home she uses only Tylenol for pain no NSAIDs, she is not taking any blood thinner only lisinopril 20 mg twice a day, Lipitor every other days and nitroglycerin pills. She does not have a drug allergy. She denies smoking alcohol or illicit drugs Hemodynamically stable and currently afebrile Hemoglobin 11.4, rest of CBC, BMP, LFT, INR and troponin were all unremarkable EKG showing sinus rhythm at 68 She is given some IV fluid in the emergency room. Placed on IV Protonix and admitted with GI consult At [facility] CT of the abdomen pelvis without contrast showing no acute process identified that would explain the patient Symptoms, gastric bypass surgical changes and other nonspecific findings per report 08/31 Patient still complaining from right upper quadrant abdominal pain and tenderness She still has nausea uncontrolled completely by Zofran 6 mg every 6 hours, therefore we added Reglan 5 mg as needed as well. She is started on IV fluid D5 normal saline at 75 mL/h. Protonix increased to 40 mg twice daily She is hemodynamically stable. Monitor hemoglobin and electrolytes tomorrow. Plan for the patient to go to EGD today with GI team 09/01 Patient had EGD yesterday showing 3 cm clean-based gastric ulcers with no active bleeding. GI team recommended to continue with Protonix IV twice daily and follow-up closely outpatient for reevaluation for possible repeat EGD, discussed this recommendation with the patient and she verbalized understanding acce ptance. Also patient has not developed a low-grade fever about 100.4. Also patient was reporting she had fever at home before the hospitalization therefore we did more workup with chest x-ray showing no consolidation. Urinalysis slightly abnormal with WBC only 11 and she has a small leukocyte esterase. Blood culture and urine culture and procalcitonin ordered pending Patient was started empirically on IV Zosyn and we are going to consult infectious disease team. Noted that patient is fully awake oriented looks comfortable today with nausea controlled. She did not have bowel movement since yesterday but she is passing gas. Patient complains from right upper quadrant pain and tenderness which could be related to her gastric ultrasound but also she has some abdominal cramps in the lower abdomen below the umbilicus. 09/02--patient was seen and examined today. No further episodes of diarrhea or melena. Complaining of left wrist pain, x-ray left wrist and ultrasound left upper extremity to rule out DVT ordered. Currently on Zosyn. Infectious disease following. 09/03--patient was seen and examined today. No issues overnight, remained afebrile, heart rate 77, respiratory rate 16, blood pressure 99/63, saturating 91% on room air. WBC 6.16, hemoglobin 9.2, platelet 251. BMP unremarkable. Assessment and plan: Upper GI bleed: Gastric ulcer: History of gastric bypass surgery: Presented with black tarry stools Status post EGD showing 3 cm clean-based ulcer at anastomotic site of gastric bypass, no active bleeding. GI recommended to continue Protonix, iron Monitor hemoglobinstable Fever: Gastroenteritis: Patient spiked fever during hospitalization Blood culture negative so far. Cryptosporidium, stool culture and C. difficile ordered Continue Zosyn Infectious disease consult X-ray left wrist and ultrasound left upper extremity --- showed superficial vein thrombosis in basilic vein. No DVT. DVT prophylaxis: SCD Monitor vital signs and labs Labs and medication were reviewed. Continue same treatment. Further recommendations as per clinical course of the patient PHYSICAL EXAMINATION: GENERAL: The patient is A&O x3, NAD HEENT: EOMI, Sclerae anicteric, Moist Mucous membranes Neck: Supple, Non tender, No JVD PULMONARY: Equal breath souds B/L, No wheezing, No crackles. CARDIOVASCULAR: S1, S2 present. No murmurs, rubs, or gallops. ABDOMEN: Soft, nontender, nondistended, normoactive bowel sounds. No guarding or rebound tenderness. MUSCULOSKELETAL: No edema, No cyanosis. No clubbing. Normal ROM. Intact peripheral pulses. NEUROLOGICAL: CN 2-12 grossly intact. No FND Skin: No Rash REVIEW OF SYSTEMS: CONSTITUTIONAL: No fever or chills. CARDIOVASCULAR: No chest pain, palpitations or syncope. PULMONARY: No shortness of breath, no cough, sore throat. GASTROINTESTINAL: No nausea, vomiting, diarrhea, abdominal pain. : No Dysuria, urgency, frequency. Extremities: No edema. NEUROLOGICAL: No headaches, no weakness, or numbness Dictation was produced using [employer] dictation software. please excuse any grammatical, word or spelling errors. Objective - Vital Signs Vital signs: Vital Signs Temp 98.6 F 09/03/24 07:04 Pulse 77 09/03/24 07:04 Resp 18 09/03/24 07:04 BP 99/66 09/03/24 07:04 Pulse Ox 91 L 09/03/24 07:04 FiO2 Intake & Output 09/02/24 09/03/24 09/03/24 18:59 06:59 18:59 Weight 90 kg Other: Voiding Method Toilet # Voids 3 1 # Bowel Movements 1 - Labs CBC & Chem 7: 09/03/24 06:16 09/03/24 06:16 Labs: Abnormal Lab Results - Last 24 Hours (Table) 09/03/24 09/03/24 Range/Units 06:16 06:16 RBC 3.17 L (4.10-5.20) X 10*6/uL Hgb 9.2 L (12.0-15.0) g/dL Hct 29.8 L (37.2-46.3) % MCHC 30.9 L (32.0-37.0) g/dL Calcium 8.4 L (8.7-10.3) mg/dL Microbiology - Last 24 Hours (Table) 08/31/24 22:43 Blood Culture - Preliminary Blood 09/01/24 00:01 Urine Culture - Final Urine,Voided
--- NOTE | 2024-09-03 15:18 | P.PN ---
Subjective Progress Note Date: 09/03/24 Principal diagnosis: Reason for follow-up is fever Patient is a 64-year-old female with a past medical history significant for coronary artery disease hypertension GI bleed status post bariatric surgery presenting to the hospital for evaluation of abdominal pain nausea vomiting diarrhea concern for GI bleed status post EGD with evidence of gastric anastomotic ulcer did have a fever prompting this consultation. On today's evaluation that is 09/03/2024, Patient is afebrile patient is currently on room air and denies having any shortness of breath, the patient denies any chest pain or cough, the patient denies any nausea vomiting abdominal pain has decreased no bowel movement last 2 days. Patient white count 6.16 creatinine 0.6 stool studies not done Objective - Vital Signs Vital signs: Vital Signs Temp 97.7 F 09/03/24 14:09 Pulse 66 09/03/24 14:09 Resp 18 09/03/24 14:09 BP 98/63 09/03/24 14:09 Pulse Ox 96 09/03/24 14:09 FiO2 Intake & Output 09/02/24 09/03/24 09/03/24 18:59 06:59 18:59 Weight 90 kg Other: Voiding Method Toilet # Voids 3 1 # Bowel Movements 1 - Exam GENERAL DESCRIPTION: Middle-age female lying in bed in no distress RESPIRATORY SYSTEM: Unlabored breathing , decreased breath sounds at bases HEART: S1 S2 regular rate and rhythm , ABDOMEN: Soft , no tenderness EXTREMITIES: No edema feet - Labs CBC & Chem 7: 09/03/24 06:16 09/03/24 06:16 Labs: Abnormal Lab Results - Last 24 Hours (Table) 09/03/24 09/03/24 Range/Units 06:16 06:16 RBC 3.17 L (4.10-5.20) X 10*6/uL Hgb 9.2 L (12.0-15.0) g/dL Hct 29.8 L (37.2-46.3) % MCHC 30.9 L (32.0-37.0) g/dL Calcium 8.4 L (8.7-10.3) mg/dL Microbiology - Last 24 Hours (Table) 08/31/24 22:43 Blood Culture - Preliminary Blood 09/01/24 00:01 Urine Culture - Final Urine,Voided Assessment and Plan (1) Fever Current Visit: Yes Status: Acute Code(s): R50.9 - FEVER, UNSPECIFIED SNOMED Code(s): 659575979 (2) Gastroenteritis Current Visit: Yes Status: Acute Code(s): K52.9 - NONINFECTIVE GASTROENTERITIS AND COLITIS, UNSPECIFIED SNOMED Code(s): 72222180 Plan: 1patient with a low-grade fever in this patient who did have predominantly GI symptoms starting with a nausea vomiting diarrhea and did have some blood in the stool apparently did have a CT at the outside facility did not show any acute abnormality and the patient status post EGD with evidence of gastric anastomosis ulcer status post biopsy source of the fever likely abdominal/GI 2stool studies requested but not completed and the patient did have no further bowel movement 3patient seem to have responded clinically to Zosyn which will be continued while inpatient transition to oral antibiotic on discharge Dictation was produced using [employer] dictation software. please excuse any grammatical, word or spelling errors.
[2024-09-04 08:22] VITALS: RESP 16
[2024-09-04] MEDS: DOCUSATE 100 MG CAP PO SCH (10:48)
--- NOTE | 2024-09-04 12:10 | P.PN ---
Subjective Progress Note Date: 09/04/24 Principal diagnosis: Melena, GI bleed This is a pleasant 64-year-old female with a past medical history including previous upper GI bleed, gastric bypass with Melina-en-Y 17 years ago, coronary artery disease with previous stent and hypertension. Patient had presented to [facility] with complaints of nausea vomiting and diarrhea since this past Wednesday. She has had multiple episodes of emesis as well as diarrhea which she reported emesis as coffee-ground in color and loose stools that have been black and tarry with some noted blood. She states she does have a history of a previous upper GI bleed she believes possibly an ulcer and had undergone EGD about [address] Healy with intervention. Patient states since she has been transferred here to our hospital she has had no further vomiting, still has some nausea, no further bowel movements. She denies being on any anticoagulation, no NSAID use. Admitting labs WBC 6.3 hemoglobin 11.4 hematocrit 37 platelet count 257,000 INR 1.0 sodium 140 potassium 4.3 BUN 10 creatinine 0.5 total bilirubin 0.5 AST 23 ALT 19 alkaline phosphatase 75 lipase 59 influenza RSV and COVID serologies negative. Patient denies any other sick contacts. 09/01/2024 Patient seen and examined today as a follow-up. Yesterday she underwent upper endoscopy with findings of 3 cm clean-based gastric anastomotic ulcer at the anastomosis with no active bleeding. Scattered erosions in the gastric pouch status post biopsy. Patient denies any abdominal pain, nausea or vomiting. No blood in her stool or black stool. Patient had spiked a low-grade temp yesterday evening and was started on IV antibiotics empirically by medical team. She has been afebrile since. She has had recent upper respiratory and GI symptoms. 09/04/2024 Patient seen and examined today as a follow-up. She states she has no abdominal pain, nausea or vomiting. Apparently patient was Through the weekend secondary to flulike symptoms and fever. Infectious disease was consulted and following. She has not had any further diarrhea. She reports having a small bowel movement 2 days ago without any blood noted. She is complaining of left upper extremity pain. Noted venous duplex superficial thrombus within the basilic vein. Hemoglobin has been stable it was 9.2 yesterday. No current labs from today. Objective - Vital Signs Vital signs: Vital Signs Temp 98.5 F 09/04/24 07:21 Pulse 80 09/04/24 07:21 Resp 16 09/04/24 07:21 BP 115/69 09/04/24 07:21 Pulse Ox 95 09/04/24 07:21 FiO2 Intake & Output 09/03/24 09/04/24 09/04/24 18:59 06:59 18:59 Weight 97.5 kg Other: Voiding Method Toilet # Voids 3 2 - Exam General appearance: The patient is alert, oriented, appears in no acute distress. HET: Head is normocephalic and atraumatic. Conjunctiva pink. Sclera anicteric. Neck: Supple without lymphadenopathy. Abdomen: Soft, nontender, nondistended. Extremities: Normal skin color and turgor. No pedal edema Skin: No rashes, no jaundice Neurological: No focal deficits. Alert and oriented. - Labs CBC & Chem 7: 09/03/24 06:16 09/03/24 06:16 Labs: Microbiology - Last 24 Hours (Table) 08/31/24 22:43 Blood Culture - Preliminary Blood Assessment and Plan (1) GI bleed Narrative/Plan: 64-year-old female presenting from outside hospital for nausea vomiting and diarrhea since Wednesday associated with coffee-ground emesis and black tarry stools and reported melena. This send patient with a previous history of upper GI bleed and underwent upper endoscopy about 3 years ago she states she believes possibly an ulcer was found and treated. She is not on any anticoagulation or NSAIDs she has not been taking any proton pump inhibitors. She had onset of abdominal pain and then she would have loose stools and diarrhea. Hemoglobin is stable at 11.4. Need to consider possible etiology peptic ulcer disease, AVM, gastritis, esophagitis or other possible etiologies. Last colonoscopy about 5 years ago. Patient is post upper endoscopy with finding of 3 cm clean-based ulcer at anastomotic site of Melina-en-Y without any active bleeding and scattered erosions in the gastric pouch status postbiopsy. Melena likely secondary from the ulcer and/or gastric erosions. Iron panel shows iron deficiency anemia likely from acute blood loss anemia. We can replace iron. Continue with Protonix 40 mg twice daily. Otherwise patient can be discharged home. Follow-up with Dr. Healy in [place] and will need repeat upper endoscopy in 6 months. Current Visit: Yes Status: Acute Code(s): K92.2 - GASTROINTESTINAL HEMORRHAGE, UNSPECIFIED SNOMED Code(s): 87128945 (2) Nausea and vomiting Current Visit: Yes Status: Acute Code(s): R11.2 - NAUSEA WITH VOMITING, UNSPECIFIED SNOMED Code(s): 89833456 (3) Melena Narrative/Plan: Resolved Current Visit: Yes Status: Acute Code(s): K92.1 - MELENA SNOMED Code(s): 8099499 (4) Coffee ground emesis Narrative/Plan: Resolved Current Visit: Yes Status: Acute Code(s): K92.0 - HEMATEMESIS SNOMED Code(s): 61566822 Plan: 1. Continue symptomatic and supportive care 2. Diet as tolerated 3. Continue Protonix 40 mg daily 4. Continue iron 5. Avoid NSAIDs 6. Will add stool softener 7. Patient is cleared from gastroenterology for discharge. Outpatient follow- up with repeat upper endoscopy in 6 months Thank you for this consultation, we will sign off at this time. Dr. Chance Healy I agree with the dictator's note, documented as a scribe by Hannah Buchanan.
--- NOTE | 2024-09-04 13:57 | P.DS ---
Providers Date of admission: 08/30/24 14:58 Attending physician: Akhil Wallis MD Consults: 08/30/24 14:56 Consult Physician Stat Consulting Provider: Sania Healy Consult Reason/Comments: Lower GI bleed Do you want consulting provider notified?: Already Contacted 08/31/24 21:43 Consult Physician Urgent Consulting Provider: Adriana Vigil Consult Reason/Comments: fever Do you want consulting provider notified?: Yes Primary care physician: [facility] Course: Discharge diagnoses: Upper GI bleed: Gastric ulcer: History of gastric bypass surgery: Presented with black tarry stools Status post EGD showing 3 cm clean-based ulcer at anastomotic site of gastric bypass, no active bleeding. GI recommended to continue Protonix, iron Monitor hemoglobinstable Fever: Resolved Gastroenteritis: Resolved Patient spiked fever during hospitalization Blood culture negative so far. Cryptosporidium, stool culture and C. difficile ordered Received Rocephin during hospitalization, continued on Ceftin and Flagyl at discharge. Infectious disease consult X-ray left wrist and ultrasound left upper extremity --- showed superficial vein thrombosis in basilic vein. No DVT. Hospital course: Interval History: This is a pleasant 64 years old female who was transferred from [facility]. Patient presents because of possible lower GI bleed. Patient she states over the last 2 months she has been having pain in both upper and lower abdomen about 6-7/10 in severity radiating to the back Dorothy like something pressing and is relieved by Zofran which helped her nausea as well. She reports she is having diarrhea with blood more than 16 in the last 24 hours. Also she has pain in her right hip surgery area about 1 year ago had surgery on her right knee had surgery 10 years ago. Also patient reports running fever about 100.1 200.2 few days ago. She has history of bariatric bypass procedure with Dr. Huston. At home she uses only Tylenol for pain no NSAIDs, she is not taking any blood thinner only lisinopril 20 mg twice a day, Lipitor every other days and nitroglycerin pills. She does not have a drug allergy. She denies smoking alcohol or illicit drugs Hemodynamically stable and currently afebrile Hemoglobin 11.4, rest of CBC, BMP, LFT, INR and troponin were all unremarkable EKG showing sinus rhythm at 68 She is given some IV fluid in the emergency room. Placed on IV Protonix and admitted with GI consult At [facility] CT of the abdomen pelvis without contrast showing no acute process identified that would explain the patient Symptoms, gastric bypass surgical changes and other nonspecific findings per report 08/31 Patient still complaining from right upper quadrant abdominal pain and tenderness She still has nausea uncontrolled completely by Zofran 6 mg every 6 hours, therefore we added Reglan 5 mg as needed as well. She is started on IV fluid D5 normal saline at 75 mL/h. Protonix increased to 40 mg twice daily She is hemodynamically stable. Monitor hemoglobin and electrolytes tomorrow. Plan for the patient to go to EGD today with GI team 09/01 Patient had EGD yesterday showing 3 cm clean-based gastric ulcers with no active bleeding. GI team recommended to continue with Protonix IV twice daily and follow-up closely outpatient for reevaluation for possible repeat EGD, discussed this recommendation with the patient and she verbalized understanding acceptance. Also patient has not developed a low-grade fever about 100.4. Also patient was reporting she had fever at home before the hospitalization therefore we did more workup with chest x-ray showing no consolidation. Urinalysis slightly abnormal with WBC only 11 and she has a small leukocyte esterase. Blood culture and urine culture and procalcitonin ordered pending Patient was started empirically on IV Zosyn and we are going to consult infectious disease team. Noted that patient is fully awake oriented looks comfortable today with nausea controlled. She did not have bowel movement since yesterday but she is passing gas. Patient complains from right upper quadrant pain and tenderness which could be related to her gastric ultrasound but also she has some abdominal cramps in the lower abdomen below the umbilicus. 09/02--patient was seen and examined today. No further episodes of diarrhea or melena. Complaining of left wrist pain, x-ray left wrist and ultrasound left upper extremity to rule out DVT ordered. Currently on Zosyn. Infectious disease following. 09/03--patient was seen and examined today. No issues overnight, remained afebrile, heart rate 77, respiratory rate 16, blood pressure 99/63, saturating 91% on room air. WBC 6.16, hemoglobin 9.2, platelet 251. BMP unremarkable. 09/04--patient was seen and examined today. Vitals remained stable. Patient remained afebrile. Okay to discharge on 5 days of Ceftin and Flagyl per infectious disease. Patient continued on iron and Protonix at discharge. PHYSICAL EXAMINATION: GENERAL: The patient is A&O x3, NAD HEENT: EOMI, Sclerae anicteric, Moist Mucous membranes Neck: Supple, Non tender, No JVD PULMONARY: Equal breath souds B/L, No wheezing, No crackles. CARDIOVASCULAR: S1, S2 present. No murmurs, rubs, or gallops. ABDOMEN: Soft, nontender, nondistended, normoactive bowel sounds. No guarding or rebound tenderness. MUSCULOSKELETAL: No edema, No cyanosis. No clubbing. Normal ROM. Intact peripheral pulses. NEUROLOGICAL: CN 2-12 grossly intact. No FND SKIN: No rashes. Dictation was produced using [employer] dictation software. please excuse any grammatical, word or spelling errors. Patient Condition at Discharge: Fair Plan - Discharge Summary Discharge Rx Participant: Yes New Discharge Prescriptions: New cefuroxime axetiL [Ceftin] 500 mg PO BID 5 Days #10 tab metroNIDAZOLE [Flagyl] 500 mg PO BID 5 Days #10 tab Ferrous Sulfate [Iron (65 MG Elemental)] 325 mg PO BID-W/MEALS #30 tab Pantoprazole [Protonix] 40 mg PO AC-BID #60 tab Continue lisinopriL [Zestril] 20 mg PO DAILY Cyanocobalamin [Vitamin B-12 Injection] 1,000 mcg SQ QMONTHLY Nitroglycerin Sl Tabs [Nitrostat] 0.4 mg SUBLINGUAL Q5M PRN PRN Reason: Chest Pain Multivitamins, Thera [Multivitamin (formulary)] 1 tab PO DAILY Atorvastatin [Lipitor] 20 mg PO Q48H Discharge Medication List Atorvastatin [Lipitor] 20 mg PO Q48H 08/30/24 [History] Cyanocobalamin [Vitamin B-12 Injection] 1,000 mcg SQ QMONTHLY 08/30/24 [History] Multivitamins, Thera [Multivitamin (formulary)] 1 tab PO DAILY 08/30/24 [History] Nitroglycerin Sl Tabs [Nitrostat] 0.4 mg SUBLINGUAL Q5M PRN 08/30/24 [History] lisinopriL [Zestril] 20 mg PO DAILY 08/30/24 [History] Ferrous Sulfate [Iron (65 MG Elemental)] 325 mg PO BID-W/MEALS #30 tab 09/04/24 [Rx] Pantoprazole [Protonix] 40 mg PO AC-BID #60 tab 09/04/24 [Rx] cefuroxime axetiL [Ceftin] 500 mg PO BID 5 Days #10 tab 09/04/24 [Rx] metroNIDAZOLE [Flagyl] 500 mg PO BID 5 Days #10 tab 09/04/24 [Rx] Follow up Appointment(s)/Referral(s): James Huffman MD [Primary Care Provider] - 1-2 days Sania Healy MD [STAFF PHYSICIAN] - 4 Weeks Activity/Diet/Wound Care/Special Instructions: Avoid NSAIDs like naproxen, Mobic, ibuprofen Discharge Disposition: HOME SELF-CARE
[2024-09-04 14:58] VITALS: BP 116/66; PULSE 79; TEMP 98.2
--- NOTE | 2024-09-04 15:01 | P.PN ---
Subjective Progress Note Date: 09/02/24 Principal diagnosis: Reason for follow-up is fever Patient is a 64-year-old female with a past medical history significant for coronary artery disease hypertension GI bleed status post bariatric surgery presenting to the hospital for evaluation of abdominal pain nausea vomiting diarrhea concern for GI bleed status post EGD with evidence of gastric anastomotic ulcer did have a fever prompting this consultation. On today's evaluation that is 09/02/2024, patient did have resolution of her fever and is afebrile today, patient is breathing comfortably on room air, pat ient with no chest pain or cough patient did not have any abdominal pain nausea vomiting or any loose stools patient did have 1 soft bowel movement Patient did not have a lab draw today blood cultures are pending Objective - Vital Signs Vital signs: Vital Signs Temp 97.8 F 09/02/24 13:46 Pulse 69 09/02/24 13:46 Resp 18 09/02/24 13:46 BP 94/61 09/02/24 13:46 Pulse Ox 97 09/02/24 13:46 FiO2 Intake & Output 09/01/24 09/02/24 09/02/24 18:59 06:59 18:59 Weight 90 kg Other: Voiding Method Toilet # Voids 5 2 1 # Bowel Movements 1 - Exam GENERAL DESCRIPTION: Middle-age female lying in bed in no distress RESPIRATORY SYSTEM: Unlabored breathing , decreased breath sounds at bases HEART: S1 S2 regular rate and rhythm , ABDOMEN: Soft , no tenderness EXTREMITIES: No edema feet - Labs CBC & Chem 7: 09/03/24 06:16 09/03/24 06:16 Labs: Abnormal Lab Results - Last 24 Hours (Table) 09/02/24 Range/Units 09:24 Stool Occult Blood Positive H (Negative) Microbiology - Last 24 Hours (Table) 09/01/24 00:01 Urine Culture - Final Urine,Voided 08/31/24 22:43 Blood Culture - Preliminary Blood Assessment and Plan (1) Fever Current Visit: Yes Status: Acute Code(s): R50.9 - FEVER, UNSPECIFIED SNOMED Code(s): 436242736 (2) Gastroenteritis Current Visit: Yes Status: Acute Code(s): K52.9 - NONINFECTIVE GASTROENTERITIS AND COLITIS, UNSPECIFIED SNOMED Code(s): 28303631 Plan: 1patient with a low-grade fever in this patient who did have predominantly GI symptoms starting with a nausea vomiting diarrhea and did have some blood in the stool apparently did have a CT at the outside facility did not show any acute abnormality and the patient status post EGD with evidence of gastric anastomosis ulcer status post biopsy source of the fever likely abdominal/GI 2stool studies requested but not completed 3patient seem to have responded clinically to Zosyn while waiting for the workup to be completed Dictation was produced using [employer] dictation software. please excuse any grammatical, word or spelling errors. Time with Patient: Less than 30
--- NOTE | 2024-09-04 15:01 | P.PN ---
Subjective Progress Note Date: 09/04/24 Principal diagnosis: Reason for follow-up is fever Patient is a 64-year-old female with a past medical history significant for coronary artery disease hypertension GI bleed status post bariatric surgery presenting to the hospital for evaluation of abdominal pain nausea vomiting diarrhea concern for GI bleed status post EGD with evidence of gastric anastomotic ulcer did have a fever prompting this consultation. On today's evaluation that is 09/04/2024, patient has been afebrile, patient is breathing comfortably and is currently on room air, patient denies having any significant cough no chest pain, patient denies nausea vomiting abdominal pain has improved and no diarrhea. Patient did not have lab draw today culture has been negative Objective - Vital Signs Vital signs: Vital Signs Temp 98.5 F 09/04/24 07:21 Pulse 80 09/04/24 07:21 Resp 16 09/04/24 07:21 BP 115/69 09/04/24 07:21 Pulse Ox 95 09/04/24 07:21 FiO2 Intake & Output 09/03/24 09/04/24 09/04/24 18:59 06:59 18:59 Weight 97.5 kg Other: Voiding Method Toilet # Voids 3 2 - Exam GENERAL DESCRIPTION: Middle-age female lying in bed in no distress RESPIRATORY SYSTEM: Unlabored breathing , decreased breath sounds at bases HEART: S1 S2 regular rate and rhythm , ABDOMEN: Soft , no tenderness EXTREMITIES: No edema feet - Labs CBC & Chem 7: 09/03/24 06:16 09/03/24 06:16 Labs: Microbiology - Last 24 Hours (Table) 08/31/24 22:43 Blood Culture - Preliminary Blood Assessment and Plan (1) Fever Status: Acute Code(s): R50.9 - FEVER, UNSPECIFIED SNOMED Code(s): 925902340 (2) Gastroenteritis Status: Acute Code(s): K52.9 - NONINFECTIVE GASTROENTERITIS AND COLITIS, UNSPECIFIED SNOMED Code(s): 86075440 Plan: 1patient with a low-grade fever in this patient who did have predominantly GI symptoms starting with a nausea vomiting diarrhea and did have some blood in the stool apparently did have a CT at the outside facility did not show any acute abnormality and the patient status post EGD with evidence of gastric anastomosis ulcer status post biopsy source of the fever likely abdominal/GI 2stool studies requested but not completed and the patient did have no further bowel movement 3patient has clinically responded to Zosyn and she will finish therapy with short course of oral Ceftin Flagyl discussed with admitting physician Dictation was produced using [employer] dictation software. please excuse any grammatical, word or spelling errors. Time with Patient: Less than 30
== END 2024-09-04 14:41 | disposition home or self-care (01) ==
LOC: EC 14:21 → 3SCARD 14:58 → 5NMEDONC 08-31 15:50 → 4SSUR 08-31 17:03
PROVIDERS: ADMIT Internal Medicine; ATTEND Internal Medicine
DX: K29.51 Unspecified chronic gastritis with bleeding (principal); K25.4 Chronic or unspecified gastric ulcer with hemorrhage; K63.3 Ulcer of intestine; K52.9 Noninfective gastroenteritis and colitis, unspecified; E86.0 Dehydration; I10 Essential (primary) hypertension; E78.5 Hyperlipidemia, unspecified; I25.10 Atherosclerotic heart disease of native coronary artery without angina pectoris; Z11.52 Encounter for screening for COVID-19; Z95.5 Presence of coronary angioplasty implant and graft; Z98.84 Bariatric surgery status; Z79.899 Other long term (current) drug therapy
CPT/HCPCS: 96376 ×7; 96365; 96366 ×4; 96361 ×2; 96375 ×2; 99285; 36415; 94760; 93005; 86900; 86901; 88305; 80053; 80048 ×2; 82607; 82728; 82746; 83540; 83550; 83605 ×2; 83690; 84484; 85025 ×4; 85610; 85730; 86850; 82272; 81001; 87040; 87086; 84145; 87636; 73130; 71046; 93971; 43239; G0378 ×7; J2543 ×5; J2270; J2765 ×4; J2405 ×6; J2003; J1171 ×8; J2704; J2470 ×3